=== PATIENT | female | born 1955 | race Caucasian/White ===

== ENCOUNTER 2020-11-15 14:53 | Emergency (ER) | payer OTHER ==
[~2020-11-15] VITALS: Ht 162.6 cm; Wt 72.6 kg
[2020-11-15] MEDS ORDERED: CASIRIVIMAB/IMDEVIMAB 10 ML in SODIUM CHLORIDE 0.9% 100 ML IV ONE (15:00)
[2020-11-15] MEDS ORDERED: ACETAMINOPHEN 325 MG TAB PO ONE (15:15)
== END 2020-11-15 17:13 | disposition home or self-care (01) ==
LOC: ER 14:58
DX: R05 Cough (principal); U07.1 COVID-19; R53.83 Other fatigue
CPT/HCPCS: 99283; J7050